=== PATIENT | female | born 1970 ===

== ENCOUNTER 2017-11-03 12:45 | Inpatient (IN) | payer OTHER ==
[~2017-11-03] VITALS: Ht 165.1 cm; Wt 71.2 kg
== END 2017-11-15 09:37 | DRG 743 ==
LOC: EDUNIT# 12:45 → OB/GYN 11-12 06:58 → O/R 11-12 06:58 → SURG 11-12 08:30 → OB/GYN 11-12 15:21
PROVIDERS: Obstetrics & Gynecology
PROC: 0UT70ZZ Resection of Bilateral Fallopian Tubes, Open Approach (ICD-10-PCS; 2017-11-12)
PROC: 0UT90ZZ Resection of Uterus, Open Approach (ICD-10-PCS; principal; 2017-11-12 08:30)
DX: D25.1 Intramural leiomyoma of uterus (principal); D25.0 Submucous leiomyoma of uterus; D25.2 Subserosal leiomyoma of uterus; E11.9 Type 2 diabetes mellitus without complications